=== PATIENT | female | born 1990 | race Caucasian/White ===

== ENCOUNTER → 2016-11-06 | Outpatient (CLI) | payer OTHER ==
--- NOTE | 2016-11-06 11:00 | US ---
EXAMINATION TYPE: US abdomen complete DATE OF EXAM: 11/06/2016 COMPARISON: NONE CLINICAL HISTORY: R10.11 ABD PAIN. Pt states pain on right side of ABD x 2 years EXAM MEASUREMENTS: Liver Length: 14.6 cm Gallbladder Wall: 0.2 cm CBD: 0.2 cm Spleen: 11.0 cm Right Kidney: 9.6 x 4.0 x 4.6 cm Left Kidney: 10.3 x 4.4 x 5.2 cm Pancreas: wnl Liver: wnl Gallbladder: wnl Evidence for sonographic Powers's sign: No CBD: wnl Spleen: wnl Right Kidney: wnl, lower pole difficult to visualize due to overlying bowel gas Left Kidney: wnl, poles difficult to visualize due overlying bowel gas Upper IVC: wnl Abd Aorta: wnl The liver is homogenous. The intrahepatic portion of the IVC and proximal abdominal aorta are within normal limits. There is no evidence of cholelithiasis. Common bile duct is unremarkable. The visu alized portions of the pancreas are homogenous. The spleen is unremarkable. Kidneys are symmetric a nd free of hydronephrosis. No renal lesions are seen. IMPRESSION: Visualized portions of the abdomen are unremarkable. No significant finding is seen to ac count for patient's symptoms.
== END | disposition home or self-care (01) ==
LOC: RADUSWWP 09:46
PROVIDERS: ATTEND Family Medicine
DX: R10.11 Right upper quadrant pain (principal); R11.0 Nausea
CPT/HCPCS: 76700

== ENCOUNTER → 2016-11-16 | Outpatient (CLI) | payer OTHER ==
--- NOTE | 2016-11-16 15:43 | NM ---
EXAMINATION TYPE: NM hepatobiliary w EF DATE OF EXAM: 11/16/2016 COMPARISON: NONE INDICATION: Right upper quadrant pain TECHNIQUE: After the intravenous administration of 5.2 mCi Tc 99m Mebrofenin hepatobiliary scintigrap hy is performed. Images were obtained immediately post injection. FINDINGS: There is prompt uptake and excretion of radiotracer by the liver. Extrahepatic ducts are identified at 3 minutes. The gallbladder is visualized within 3 minutes. Small bowel activity is noted within 42 minutes. At one hour 8 ounces of oral ensure plus is given to mimic CCK and gallbladder ejection fraction is c alculated at 54 %, which is in the normal range. (Normal >35% and <80%.). IMPRESSION: 1. Normal hepatobiliary scan
== END ==
LOC: RADNMMAIN 12:53
PROVIDERS: ATTEND Family Medicine
DX: R10.11 Right upper quadrant pain (principal); R11.0 Nausea
CPT/HCPCS: 78226; A9537

== ENCOUNTER → 2017-06-07 | Outpatient (CLI) | payer OTHER ==
--- NOTE | 2017-06-07 15:39 | US ---
EXAMINATION TYPE: US OB anatomy transabd DATE OF EXAM: 06/07/2017 COMPARISON: NONE HISTORY: O36.62X0 LARGE FOR DATES TECHNIQUE: Transabdominal (TA) EXAM MEASUREMENTS: GESTATIONAL AGE / DATING Physician Established: (18 weeks/5 days) EDC: 11/03/2017 Dates by LMP: (18 weeks/5 days) EDC: 11/03/2017 Dates by First Scan: this is first scan Dates by Current Scan for: (18 weeks/6 days) EDC: 11/02/2017 SURVEY IUP: Single PLACENTA: Posterior PREVIA: No previa MADDY: 16.8 cm Normal CERVICAL LENGTH (transabdominal: norm > 3.0cm): 4.4 cm BIOMETRY PRESENTATION: Vertex BPD: 4.3 cm 19 weeks / 1 days HC: 16.0 cm 18 weeks / 6 days AC: 14.1 cm 19 weeks / 4 days FL: 2.9 cm 19 weeks / 0 days ESTIMATED WEIGHT IN GRAMS: 278 grams ESTIMATED WEIGHT IN LBS/OZ: 0 lbs. 10 oz. WEIGHT PERCENTAGE BASED ON ESTABLISHED DATE: % HC/AC: 1.1 Normal FL/AC: 20.6 Normal HEART RATE: 156 bpm RHYTHM: Normal ANATOMY SEEN (within normal limits): * Lateral Vent (< 1 cm) 0.7 cm * Cisterna Magna (< 1.1 cm) 0.5 cm * Nuchal Fold (< 0.6 cm) 0.3 cm * Cerebellum (varies with age) 2.0 cm Choroid Plexus (bilateral) Midline Falx Cavus Septi Pellucidi Four Chamber Heart Outflow tracts: LVOT/RVOT Situs Nose / Lips Diaphragm Kidneys (bilateral) Bladder Cord Insert Three Vessel Cord Longitudinal Spine Transverse Spine Arms (bilateral) Legs (bilateral) ANATOMY SEEN (does not appear within normal limits): Stomach, echogenic material seen within stomach lumen throughout exam. Unsure of etiology. Viable IUP that correlates with LMP. Echogenic material seen within stomach lumen by two separate kirill hnologists. IMPRESSION: Single viable intrauterine . See above discussion.
[2017-06-10 10:08] LABS: Alpha Fetoprotein (M.O.M) 1.16; B-HCG (M.O.M.) 0.59; Gestational Age (days) 5; Human Chorionic Gonadotropin 13.4 IU/mL; Inhibin A (M.O.M.) 1.07; Maternal Age at EDD (Yrs) 25; Smoker No; Unconjugated Estriol (M.O.M.) 1.25
== END | disposition home or self-care (01) ==
LOC: RADUSWWP 13:25
PROVIDERS: ATTEND Obstetrics & Gynecology
DX: O36.62X0 Maternal care for excessive fetal growth, second trimester, not applicable or unspecified (principal); Z3A.18 18 weeks gestation of pregnancy
CPT/HCPCS: 36415; 76811; 82105; 82677; 84702; 86336

== ENCOUNTER → 2017-09-12 | Outpatient (CLI) | payer OTHER ==
--- NOTE | 2017-09-12 10:17 | US ---
EXAMINATION TYPE: US OB anatomy transabd DATE OF EXAM: 09/12/2017 COMPARISON: 05/2017 HISTORY: O36.63X0 Large for dates 3rd trimester TECHNIQUE: Transabdominal (TA) EXAM MEASUREMENTS: GESTATIONAL AGE / DATING Physician Established: (32 weeks/4 days) EDC: 11/03/2017 Dates by LMP: (32 weeks/4 days) EDC: 11/03/2017 Dates by First Scan: (32 weeks/3 days) EDC: 11/02/2017 Dates by Current Scan for: (32 weeks/0 days) EDC: 11/07/2017 SURVEY IUP: Single PLACENTA: Anterior PREVIA: No previa MADDY: 16.6 cm Normal CERVICAL LENGTH (transabdominal: norm > 3.0cm): 3.4 cm ( BIOMETRY PRESENTATION: Breech LIE: Longitudinal BPD: 8.0 cm 31 weeks / 6 days HC: 30 cm 32 weeks / 6 days AC: 27.5 cm 31 weeks / 4 days FL: 6.1 cm 31 weeks / 4 days ESTIMATED WEIGHT IN GRAMS: 1817grams ESTIMATED WEIGHT IN LBS/OZ: 4 lbs. 0 oz. WEIGHT PERCENTAGE BASED ON ESTABLISHED DATE: 16 % HC/AC: 1.1 Normal FL/AC: 22 Normal HEART RATE: 142 bpm RHYTHM: Normal ANATOMY SEEN (within normal limits): * Lateral Vent (< 1 cm) 0.9 cm * Cisterna Magna (< 1.1 cm) 0.5 cm * Nuchal Fold (< 0.6 cm) 0.3 cm *Choroid Plexus (bilateral) Midline Falx Cavus Septi Pellucidi Four Chamber Heart Outflow tracts: LVOT/RVOT Stomach Situs Nose / Lips Diaphragm Kidneys (bilateral) Bladder Cord Insert Three Vessel Cord Longitudinal Spine Transverse Spine Arms (bilateral) Legs (bilateral) ANATOMY NOT SEEN: Cerebellum (varies with age) IMPRESSION: Single live intrauterine gestation with a sonographic age of 32 weeks and 0 days with an estimated da te of delivery of 11/07/2017, concordant with menstrual age. Estimated weight percentage based o n established dates of 16%.
== END | disposition home or self-care (01) ==
LOC: RADUSWWP 08:56
PROVIDERS: ATTEND Obstetrics & Gynecology
DX: O36.63X0 Maternal care for excessive fetal growth, third trimester, not applicable or unspecified (principal); Z3A.32 32 weeks gestation of pregnancy
CPT/HCPCS: 76811